=== PATIENT | male | born 1960 | race African-American/Black ===

== ENCOUNTER 2016-06-19 22:49 | Emergency (ER) | payer MEDICAID, OTHER ==
[~2016-06-19] VITALS: Ht 167.6 cm; Wt 91.0 kg
[2016-06-20] MEDS ORDERED: MAGNESIUM/ALUMINUM HYDROXIDE/SIMETHICONE 30ML UDC PO STA (03:15)
[2016-06-20] MEDS ORDERED: PANTOPRAZOLE SODIUM 40 MG/VIAL IV STA (03:15)
[2016-06-20] MEDS ORDERED: ONDANSETRON HCL 4MG/2ML VIAL IV STA (03:15)
[2016-06-20] MEDS ORDERED: VISCOUS LIDOCAINE 2% 15 ML UDC PO STA (03:15)
[2016-06-20 03:36] LABS: BASOPHILS % 0.7 % (0.0-2.0); EOSINOPHILS % 0.8 % (0.0-5.0); HEMATOCRIT. 40.7 % (42.0-52.0); HEMOGLOBIN. 13.9 g/dL (14.0-18.0); LYMPHOCYTES % 22.9 % (20.0-50.0); MEAN CORPUSCULAR HEMOGLOBIN 29.9 pg (28.0-32.0); MEAN CORPUSCULAR HGB CONC 34.2 g/dL (31.0-37.0); MEAN CORPUSCULAR VOLUME 87.5 fL (80.0-94.0); MEAN PLATELET VOLUME 8.1 fl (7.4-10.4); MONOCYTES % 10.6 % (2.0-8.0); PLATELET 300 x1000/uL (130-400); RED BLOOD CELL COUNT 4.66 mill/uL (4.7-6.1); RED CELL DISTRIBUTION WIDTH 14.2 % (11.6-14.6)
[2016-06-20 03:41] LABS: CHLORIDE 103 mEq/L (98-107); INDEX HEMOLYSI 1 (1-3); INDEX ICTERIC 1 (1-4); INDEX LIPEMIC 1 (1-3)
[2016-06-20 03:42] LABS: INR 1.1; PROTHROMBIN TIME 11.3 sec
[2016-06-20 03:49] LABS: ALANINE AMINOTRANSFERASE 25 IU/L (13-61); ALBUMIN 3.8 g/dL (3.4-5.0); ANION GAP 13; CALCIUM 9.4 mg/dL (8.5-10.1); CARBON DIOXIDE 29 mEq/L (21-32); LIPASE 137 IU/L (73-393); UREA NITROGEN BLOOD 13 mg/dL (7-21); eGFR > 60 mL/min (>60)
[2016-06-20 05:30] VITALS: BP 125/88
== END 2016-06-20 06:15 | disposition home or self-care (01) ==
LOC: ER 22:50
DX: R10.13 Epigastric pain (principal); R11.2 Nausea with vomiting, unspecified; K21.9 Gastro-esophageal reflux disease without esophagitis; F17.200 Nicotine dependence, unspecified, uncomplicated; F12.10 Cannabis abuse, uncomplicated
CPT/HCPCS: 36415; 71010; 80053; 83690; 85025; 85610; 93005; 96374; 96375; 99285; C9113; J2405; Z7610